=== PATIENT | male | born 2000 | race Caucasian/White ===

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

== ENCOUNTER 2019-01-07 15:54 | Emergency (ER) | payer OTHER ==
[~2019-01-07] VITALS: Ht 165.1 cm; Wt 74.8 kg
[2019-01-07 16:19] VITALS: Ht 165.1 cm; Wt 74.8 kg
[2019-01-07 18:06] VITALS: BP 138/53
== END 2019-01-07 18:52 | disposition home or self-care (01) ==
LOC: ED 15:54
DX: I88.9 Nonspecific lymphadenitis, unspecified (principal); J30.9 Allergic rhinitis, unspecified; B00.9 Herpesviral infection, unspecified; F41.9 Anxiety disorder, unspecified; F15.10 Other stimulant abuse, uncomplicated; F14.10 Cocaine abuse, uncomplicated
CPT/HCPCS: 86308